=== PATIENT | male | born 1935 | race Caucasian/White ===

== ENCOUNTER 2017-09-27 01:48 | Inpatient (IN) | payer MEDICARE, OTHER, MEDICAID ==
[2017-09-27] MEDS ORDERED: Sodium Chloride 0.9% 10 ML Syringe FLUSH PRN (02:04)
[2017-09-27] MEDS ORDERED: Sodium Chloride 0.9% 1,000 ML IV ONE ×2 (02:13→04:06)
[2017-09-27 03:10] LABS: CHLORIDE,CL 106 mmol/L (98-107); SODIUM,NA 140 mmol/L (136-145)
[2017-09-27] MEDS ORDERED: cefTRIAXone 1 GM Vial IVPUSH ONE (03:46)
--- NOTE | 2017-09-27 04:53 | EDM.PDOC ---
ED HPI GENERAL MEDICAL PROBLEM - General Chief Complaint: General Stated Complaint: decreased LOC Time Seen by Provider: 09/27/17 02:00 Source of Information: Reports: Patient History Limitations: Reports: Physical Impairment, Respiratory Distress - History of Present Illness INITIAL COMMENTS - FREE TEXT/NARRATIVE: Pt. admitted from [facility] with fever, confusion, hematuria, weakness, and vomiting. Pt. has been sick for the past day, has not been in the clinic. His primary care is Dr. Galdamez. He currently is not experiencing and shortness of breath and denies any pain. Location: Reports: Generalized Associated Symptoms: Reports: Confusion, Fever/Chills, Nausea/Vomiting - Related Data Allergies Allergy/AdvReac Type Severity Reaction Status Date / Time metformin Allergy Cannot Verified 09/27/17 02:02 Remember Home Meds: Home Meds Citalopram [Citalopram HBr] 20 mg PO DAILY 12/29/13 [History] Lovastatin 20 mg PO DAILY 12/29/13 [History] amLODIPine [Norvasc] 10 mg PO DAILY 12/29/13 [History] Aspirin [Halfprin] 81 mg PO DAILY 01/04/14 [History] Fluticasone/Salmeterol [Advair 250-50] 1 puff INH BID 01/04/14 [History] Acetaminophen 650 mg PO BID 05/06/14 [History] Lactobacillus Acidophilus [Probiotic] 1 each PO BID 05/06/14 [History] Pregabalin [Lyrica] 75 mg PO BID 05/06/14 [History] Polyethylene Glycol 3350 [Miralax] 17 gm PO DAILY 07/29/15 [History] Fish Oil/[place]-3 Fatty Acids [Fish Oil 1,000 MG] 1 gram PO DAILY 08/01/15 [ History] Ferrous Sulfate 325 mg PO BIDMEALS #60 tablet 08/02/15 [Rx] Allopurinol [Zyloprim] 200 mg PO DAILY 02/17/17 [History] Alpha Lipoic Acid 300 mg PO TID 02/17/17 [History] Finasteride 5 mg PO DAILY 02/17/17 [History] Insulin Aspart [NovoLOG] See Protocol SUBCUT BID 02/17/17 [History] Multivitamin [Multi-Vitamin Daily] 1 each PO DAILY 02/17/17 [History] Ranitidine HCl 150 mg PO DAILY 02/17/17 [History] Tamsulosin [Flomax] 0.4 mg PO DAILY 02/17/17 [History] Tresiba Flextouch Pen 200u/Ml 70 units SUBCUT DAILY 02/17/17 [History] levETIRAcetam [Keppra] 750 mg PO BID 02/17/17 [History] Docusate Sodium [Colace] 100 mg PO DAILY 09/27/17 [History] Levothyroxine Sodium [Unithroid] 100 mcg PO DAILY 09/27/17 [History] Lisinopril 2.5 mg PO DAILY 09/27/17 [History] Loratadine 10 mg PO DAILY 09/27/17 [History] Magnesium Chloride [Mag-64] 128 mg PO BID 09/27/17 [History] Psyllium Husk (With Sugar) [Metamucil Powder] 1 tsp PO DAILY 09/27/17 [History] SitaGLIPtin [Januvia] 50 mg PO DAILY 09/27/17 [History] Past Medical History HEENT History: Reports: Cataract Cardiovascular History: Reports: High Cholesterol, Hypertension, SOB on Exertion , Other (See Below) Other Cardiovascular History: AAA without rupture Respiratory History: Reports: COPD, Sleep Apnea Other Respiratory History: Chronic home O2 at 2L Gastrointestinal History: Reports: Chronic Constipation, GERD Other Gastrointestinal History: DIVERTICULITIS Genitourinary History: Reports: BPH, Renal Disease Other Genitourinary History: diverticulitis Musculoskeletal History: Reports: Gout, Neck Pain, Chronic, Osteoarthritis Neurological History: Reports: Seizure, Other (See Below) Other Neuro History: dementia, mild cognitive impairment Psychiatric History: Reports: Depression Endocrine/Metabolic History: Reports: Diabetes, Type II, Hypothyroidism Hematologic History: Reports: Anemia Immunologic History: Reports: Immunosuppression Oncologic (Cancer) History: Reports: Colon, Prostate Dermatologic History: Reports: Eczema Other Dermatologic History: DERMITITIS - Past Surgical History HEENT Surgical History: Reports: Cataract Surgery Social & Family History - Family History Family Medical History: Unobtainable - Tobacco Use Smoking Status *Q: Unknown Ever Smoked Years of Tobacco use: 42 Packs/Tins Daily: 1 Used Tobacco, but Quit: Yes Month Tobacco Last Used: unknown Second Hand Smoke Exposure: No - Caffeine Use Caffeine Use: Reports: Coffee - Alcohol Use Days Per Week of Alcohol Use: 0 - Recreational Drug Use Recreational Drug Use: No ED ROS GENERAL - Review of Systems Review Of Systems: Unable To Obtain ED EXAM, GENERAL - Physical Exam Exam: See Below Exam Limited By: Altered Mental Status General Appearance: Lethargic Eye Exam: Bilateral Eye: Normal Fundi, Normal Inspection Ears: Normal External Exam, Normal Canal, Hearing Grossly Normal, Normal TMs Nose: Normal Inspection, Normal Mucosa, No Blood Throat/Mouth: Normal Inspection, Normal Lips, Normal Teeth, Normal Gums, Normal Oropharynx, Normal Voice, No Airway Compromise Head: Atraumatic, Normocephalic Neck: Normal Inspection, Supple, Non-Tender, Full Range of Motion Respiratory/Chest: Crackles (bases) Cardiovascular: Normal Peripheral Pulses, Regular Rate, Rhythm, No Edema, No Gallop, No JVD, No Murmur, No Rub Peripheral Pulses: 3+: Radial (L), Radial (R) GI/Abdominal: Normal Bowel Sounds, Soft, Non-Tender, No Organomegaly, No Distention Back Exam: Normal Inspection, Full Range of Motion, NT Extremities: Normal Inspection, Normal Range of Motion, Non-Tender, Normal Capillary Refill, No Pedal Edema Neurological: Alert, Oriented, CN II-XII Intact, Normal Cognition, Normal Gait, Normal Reflexes, No Motor/Sensory Deficits Psychiatric: Normal Affect, Normal Mood Skin Exam: Warm, Dry, Intact, Normal Color, No Rash Course - Vital Signs Last Recorded V/S: Last Vital Signs Temp 38.4 C H 09/27/17 01:50 Pulse 76 09/27/17 01:50 Resp 20 09/27/17 01:50 BP 94/40 L 09/27/17 04:04 Pulse Ox 91 L 09/27/17 04:04 - Orders/Labs/Meds Orders: Active Orders 24 hr Category Date Time Status Patient Status [ADT] Routine ADT 09/27/17 03:43 Active Oxygen Therapy [RC] PRN Care 09/27/17 02:02 Active Chest 1V Frontal [CR] Stat Exams 09/27/17 02:03 Taken CULTURE BLOOD [BC] Stat Lab 09/27/17 02:29 Received CULTURE BLOOD [BC] Stat Lab 09/27/17 02:44 Received Sodium Chloride 0.9% [Saline Flush] Med 09/27/17 02:04 Active 10 ml FLUSH ASDIRECTED PRN Blood Culture x2 Reflex Set [OM.PC] Stat Oth 09/27/17 02:04 Ordered Peripheral IV Insertion Adult [OM.PC] Routine Oth 09/27/17 02:04 Ordered Medication Orders Ceftriaxone Sodium (Rocephin) 1 gm IVPUSH DAILY DAVID Sodium Chloride (Normal Saline) 1,000 mls @ 250 mls/hr IV .BOLUS ONE Stop: 09/27/17 08:05 Sodium Chloride (Saline Flush) 10 ml FLUSH ASDIRECTED PRN PRN Reason: Keep Vein Open Labs: Laboratory Tests 09/27/17 09/27/17 09/27/17 Range/Units 02:15 02:29 02:29 WBC 19.3 H (4.0-10.0) x10^3/uL RBC 3.83 L (4.5-6.0) x10^6/uL Hgb 11.3 L (14.0-18.0) g/dL Hct 34.9 L (40.0-52.0) % MCV 91.1 (78.0-93.0) fL MCH 29.5 (26.0-32.0) pg MCHC 32.4 (32.0-36.0) g/dL RDW Coeff of Ayaz 14.9 (10.0-15.0) % Plt Count 148 (130-400) x10^3/uL Add Manual Diff Yes Neutrophils % (Manual) 86 H (50-80) % Band Neutrophils % 7 H (0-6) % Lymphocytes % (Manual) 3 L (25-50) % Monocytes % (Manual) 4 (2-11) % Toxic Granulation 1+ slight H Platelet Estimate Adequate Anisocytosis 1+ slight H Ovalocytes Rare PT 11.1 (9.8-11.8) SEC INR 1.0 L (2.0-3.5) Sodium (136-145) mmol/L Potassium (3.5-5.1) mmol/L Chloride (98-107) mmol/L Carbon Dioxide (21-32) mmol/L BUN (7-18) mg/dL Creatinine (0.70-1.30) mg/dL Est Cr Clr Drug Dosing Estimated GFR (MDRD) Glucose (74-106) mg/dL Lactic Acid (0.4-2.0) mmol/L Calcium (8.5-10.1) mg/dL Corrected Calcium (8.5-10.1) mg/dL Total Bilirubin (0.2-1.0) mg/dL AST (15-37) U/L ALT (16-63) U/L Alkaline Phosphatase (46-116) U/L C-Reactive Protein (<=0.9) mg/dL Total Protein (6.4-8.2) g/dL Albumin (3.4-5.0) g/dL Globulin Albumin/Globulin Ratio Urine Color Kenna H (YELLOW) Urine Appearance Turbid H (CLEAR) Urine pH 9.0 H (5.0-8.0) Ur Specific [place] 1.015 Urine Protein >=300 H (NEGATIVE) mg/dL Urine Glucose (UA) Negative (NEGATIVE) mg/dL Urine Ketones Negative (NEGATIVE) mg/dL Urine Occult Blood Large H (NEGATIVE) Urine Nitrite Positive H (NEGATIVE) Urine Bilirubin Negative (NEGATIVE) Urine Urobilinogen 0.2 (0.2) EU/dL Ur Leukocyte Esterase Moderate H (NEGATIVE) Urine RBC 0-5 (NOT SEEN) /HPF Urine WBC 40-50 H (NOT SEEN) /HPF Ur Squamous Epith Cells Not seen (NEGATIVE) /HPF Triple Phos Crystals Moderate H (NEGATIVE) /HPF Urine Bacteria Many H (NEGATIVE) /HPF Urine Mucus Not seen (NEGATIVE) /LPF 09/27/17 09/27/17 Range/Units 02:29 02:29 WBC (4.0-10.0) x10^3/uL RBC (4.5-6.0) x10^6/uL Hgb (14.0-18.0) g/dL Hct (40.0-52.0) % MCV (78.0-93.0) fL MCH (26.0-32.0) pg MCHC (32.0-36.0) g/dL RDW Coeff of Ayaz (10.0-15.0) % Plt Count (130-400) x10^3/uL Add Manual Diff Neutrophils % (Manual) (50-80) % Band Neutrophils % (0-6) % Lymphocytes % (Manual) (25-50) % Monocytes % (Manual) (2-11) % Toxic Granulation Platelet Estimate Anisocytosis Ovalocytes PT (9.8-11.8) SEC INR (2.0-3.5) Sodium 140 (136-145) mmol/L Potassium 6.3 H* (3.5-5.1) mmol/L Chloride 106 (98-107) mmol/L Carbon Dioxide 22 (21-32) mmol/L BUN 46 H (7-18) mg/dL Creatinine 2.8 H (0.70-1.30) mg/dL Est Cr Clr Drug Dosing TNP Estimated GFR (MDRD) 22 Glucose 110 H (74-106) mg/dL Lactic Acid 1.2 (0.4-2.0) mmol/L Calcium 9.1 (8.5-10.1) mg/dL Corrected Calcium 9.90 (8.5-10.1) mg/dL Total Bilirubin 0.5 (0.2-1.0) mg/dL AST 25 (15-37) U/L ALT 29 (16-63) U/L Alkaline Phosphatase 74 (46-116) U/L C-Reactive Protein 17.5 H (<=0.9) mg/dL Total Protein 7.2 (6.4-8.2) g/dL Albumin 3.0 L (3.4-5.0) g/dL Globulin 4.2 Albumin/Globulin Ratio 0.71 Urine Color (YELLOW) Urine Appearance (CLEAR) Urine pH (5.0-8.0) Ur Specific [place] Urine Protein (NEGATIVE) mg/dL Urine Glucose (UA) (NEGATIVE) mg/dL Urine Ketones (NEGATIVE) mg/dL Urine Occult Blood (NEGATIVE) Urine Nitrite (NEGATIVE) Urine Bilirubin (NEGATIVE) Urine Urobilinogen (0.2) EU/dL Ur Leukocyte Esterase (NEGATIVE) Urine RBC (NOT SEEN) /HPF Urine WBC (NOT SEEN) /HPF Ur Squamous Epith Cells (NEGATIVE) /HPF Triple Phos Crystals (NEGATIVE) /HPF Urine Bacteria (NEGATIVE) /HPF Urine Mucus (NEGATIVE) /LPF Meds: Medications Generic Name Dose Route Start Last Admin Trade Name Freq PRN Reason Stop Dose Admin Ceftriaxone Sodium 1 gm 09/28/17 04:00 Rocephin IVPUSH DAILY DAVID Sodium Chloride 1,000 mls @ 250 mls/hr 09/27/17 04:06 Normal Saline IV 09/27/17 08:05 .BOLUS ONE Sodium Chloride 10 ml 09/27/17 02:04 Saline Flush FLUSH ASDIRECTED PRN Keep Vein Open Discontinued Medications Generic Name Dose Route Start Last Admin Trade Name Freq PRN Reason Stop Dose Admin Ceftriaxone Sodium 1 gm 09/27/17 03:46 09/27/17 04:11 Rocephin IVPUSH 09/27/17 03:47 1 gm ONETIME ONE Administration Sodium Chloride 1,000 mls @ 1,000 mls/hr 09/27/17 02:13 09/27/17 03:00 Normal Saline IV 09/27/17 03:12 1,000 mls/hr .BOLUS ONE Administration Departure - Departure Time of Disposition: 04:20 Disposition: Admitted As Inpatient 68 Clinical Impression: Sepsis, UTI, Urinary tract infectious disease CKD (chronic kidney disease) Qualifiers: Chronic kidney disease stage: unspecified stage Qualified Code(s): N18.9 - Chronic kidney disease, unspecified - Discharge Information - My Orders Last 24 Hours: My Active Orders 09/27/17 02:02 Oxygen Therapy [RC] PRN 09/27/17 02:03 Chest 1V Frontal [CR] Stat 09/27/17 02:04 Sodium Chloride 0.9% [Saline Flush] 10 ml FLUSH ASDIRECTED PRN Blood Culture x2 Reflex Set [OM.PC] Stat Peripheral IV Insertion Adult [OM.PC] Routine 09/27/17 02:29 CULTURE BLOOD [BC] Stat 09/27/17 02:44 CULTURE BLOOD [BC] Stat 09/27/17 03:43 Patient Status [ADT] Routine - Assessment/Plan Last 24 Hours: My Active Orders 09/27/17 02:02 Oxygen Therapy [RC] PRN 09/27/17 02:03 Chest 1V Frontal [CR] Stat 09/27/17 02:04 Sodium Chloride 0.9% [Saline Flush] 10 ml FLUSH ASDIRECTED PRN Blood Culture x2 Reflex Set [OM.PC] Stat Peripheral IV Insertion Adult [OM.PC] Routine 09/27/17 02:29 CULTURE BLOOD [BC] Stat 09/27/17 02:44 CULTURE BLOOD [BC] Stat 09/27/17 03:43 Patient Status [ADT] Routine
[2017-09-27] MEDS ORDERED: TRESIBA SUBCUT SCH (08:00)
[2017-09-27] MEDS ORDERED: [UNRECOGNIZED DRUG - OTHER] SUBCUT SCH (08:00)
[2017-09-27] MEDS ORDERED: Insulin Aspart 100 Units/ML 3 ML Pen SUBCUT SCH (08:00)
[2017-09-27] MEDS ORDERED: Levothyroxine 100 MCG Tab PO SCH (08:00)
[2017-09-27] MEDS ORDERED: Pregabalin 75 MG Cap PO SCH (08:00)
[2017-09-27] MEDS: Formoterol/Mometasone 200-5 MCG 8.8 GM Inhaler IH SCH ×2 (08:10→20:24)
[2017-09-27] MEDS: Tamsulosin 0.4 MG Cap.ER PO SCH (08:13)
[2017-09-27] MEDS: Acetaminophen 325 MG Tab PO SCH ×2 (08:13→20:18)
[2017-09-27] MEDS: Docusate Sodium 100 MG Cap PO SCH (08:13)
[2017-09-27] MEDS: Loratadine 10 MG Tab PO SCH (08:13)
[2017-09-27] MEDS: SitaGLIPtin 25 MG Tab PO SCH (08:14)
[2017-09-27] MEDS: Fish Oil/Omega-3 Fatty Acids 1 Gm Cap PO SCH (08:14)
[2017-09-27] MEDS: Famotidine 20 MG Tab PO SCH (08:14)
[2017-09-27] MEDS: Citalopram 20 MG Tab PO SCH (08:14)
[2017-09-27] MEDS: Ferrous Sulfate 325 MG Tab PO SCH ×2 (08:15→20:13)
[2017-09-27] MEDS: Multivitamin, Stress Formula with Zinc Tab PO SCH (08:15)
[2017-09-27] MEDS: levETIRAcetam 500 MG Tab PO SCH ×2 (08:15→20:17)
[2017-09-27] MEDS: Finasteride 5 MG Tab PO SCH (08:15)
[2017-09-27] MEDS: amLODIPine 10 MG Tab PO SCH (08:15)
[2017-09-27] MEDS: Magnesium Chloride 64 MG Tab.ER PO SCH ×2 (08:15→20:17)
[2017-09-27] MEDS: Aspirin 81 MG Tab.EC PO SCH (08:15)
[2017-09-27] MEDS: Pregabalin 25 MG Cap PO SCH ×2 (11:37→20:17)
[2017-09-27] MEDS: Insulin Aspart 100 Units/ML 3 ML Pen SUBCUT SCH ×3 (11:37→20:19)
[2017-09-27] MEDS: Sodium Chloride 0.9% 1,000 ML IV SCH ×2 (11:38→20:20)
--- NOTE | 2017-09-27 15:25 | HP ---
REASON FOR ADMISSION: Fever and decreased level of consciousness. HISTORY OF PRESENT ILLNESS: An 82-year-old white male resident of the [facility] was transported to the [facility] Emergency room this morning, middle of the night with reports of fever up to 103 degrees, confusion, decreased level of consciousness, blood in the urine, weakness, and vomiting. Because of patient's condition and lethargy, he is unreliable historian at this time. Apparently, he had been sick for about a day. He was not experiencing any shortness of breath and currently he is denying any discomfort, although he is very drowsy when talking to him. Most information was taken from the old records. PAST MEDICAL HISTORY: Significant for 1. 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 He was seen by his urologist on 09/17/2017. Options were discussed. He was not felt to be a candidate for radical surgery or chemotherapy. He was recommended for palliative radiation therapy. 2. Hypertension. 3. COPD. 4. Sleep apnea. He is on home O2. 5. Chronic constipation. 6. GERD. 7. Diverticulitis. 8. BPH. 9. Chronic kidney disease, type unspecified. 10.Chronic arthritis. 11.History of seizures. 12.Dementia and mild cognitive impairment. 13.Major depression. 14.Diabetes mellitus type 2. 15.Hypothyroidism. 16.Anemia and immunosuppression. 17.History of cataract surgery. HOME MEDICATIONS: As listed from the [facility] record are: 1. Citalopram 20 mg daily. 2. Lovastatin 20 mg daily. 3. Amlodipine 10 mg daily. 4. Aspirin 81 mg daily. 5. Advair 250/50 one puff b.i.d. 6. Tylenol b.i.d. 7. Probiotic b.i.d. 8. Lyrica 75 mg b.i.d. 9. MiraLAX 17 g daily. 10.Fish oil daily. 11.Iron 325 mg b.i.d. 12.Allopurinol 200 mg daily. 13.Alpha lipoic acid t.i.d. 14.Finasteride 5 mg daily. 15.Insulin NovoLog b.i.d. per protocol. 16.Multivitamin daily. 17.Ranitidine 150 mg daily. 18.Flomax 0.4 mg daily. 19.Tresiba injection 70 units daily. 20.Keppra 750 mg b.i.d. 21.Colace daily. 22.Levothyroxine 100 mcg daily. 23.Lisinopril 2.5 mg daily. 24.Loratadine 10 mg daily. 25.Magnesium 120 mg b.i.d. 26.Metamucil daily. 27.Januvia 50 mg daily. FAMILY HISTORY: Not obtainable. SOCIAL HISTORY: Not obtainable. REVIEW OF SYSTEMS: Difficult to obtain due to his current condition. He would arouse when talked to, but difficult to get him to answer the questions. He is not in any acute distress at this time. He denies any pain. PHYSICAL EXAMINATION: General: He is drowsy, lethargic, but arousable to verbal command. Vital Signs: Temperature is 99, pulse is 61, blood pressure is 102/43, respirations are 18, O2 saturations are 95% on 2 L. HEENT: Pupils unremarkable. TMs negative. Throat is clear. Mucosa is dry. Neck: No adenopathy. Heart: Regular rate and rhythm. Lungs: Clear to auscultation. Abdomen: Soft, obese, and nontender. No masses palpable. No hepatosplenomegaly noted. : not done. Rectal: Not done. Extremities: He moves all 4 extremities. There is no significant edema noted. LABORATORY DATA: White count on admission was 19.3, hemoglobin 11.3, 86% neutrophils. INR of 1. Potassium on admission was 6.3, creatinine of 2.8, GFR of 22, glucose of 110, lactic acid 1.2, C-reactive protein 17.5. LFTs are normal. Urinalysis showed positive protein, positive nitrates, 0-5 rbc's, 40-50 wbc's, and many bacteria. Chest x-ray is unremarkable. EKG showed a sinus rhythm with first-degree AV block and some anterolateral T- wave inversions. TREATMENT IN EMERGENCY ROOM: The patient was given 2 L of IV fluids and 1 g IV Rocephin. He was then admitted to the hospital on acute care status. ASSESSMENT: 1. Sepsis from a urinary tract source. 2. Urinary tract infection. 3. Acute kidney injury, probably on top of chronic kidney disease. 4. History of transitional cell carcinoma of the bladder on palliative treatment. 5. Hypertension. 6. Chronic obstructive pulmonary disease. 7. Diabetes mellitus type 2. PLAN: The patient is admitted to acute care status. He will be given IV fluids and IV Rocephin for his urosepsis. Blood cultures and urine cultures have been obtained. We will repeat his potassium this afternoon and the lab work tomorrow morning. The patient is DNR, DNI, comfort measures per [facility] records. Continue most of his [facility] medications except hold his lisinopril and his Tresiba. Continue to monitor his condition. FM: 09/27/2017 10:56:00 MODL: 09/27/2017 14:32:04 /[id number]
[2017-09-27] MEDS: Simvastatin 10 MG Tab PO SCH (20:18)
[2017-09-28] MEDS: Sodium Chloride 0.9% 1,000 ML IV SCH ×3 (02:12→23:21)
[2017-09-28] MEDS ORDERED: cefTRIAXone 1 GM Vial IVPUSH SCH (04:00)
[2017-09-28] MEDS: Levothyroxine 100 MCG Tab PO SCH ×2 (05:48→06:07)
[2017-09-28] MEDS: Insulin Aspart 100 Units/ML 3 ML Pen SUBCUT SCH ×4 (06:35→19:52)
[2017-09-28] MEDS: Fish Oil/Omega-3 Fatty Acids 1 Gm Cap PO SCH ×2 (08:23→11:31)
[2017-09-28] MEDS: Multivitamin, Stress Formula with Zinc Tab PO SCH (08:23)
[2017-09-28] MEDS: cefTRIAXone 1 GM Vial IVPUSH SCH (08:38)
[2017-09-28] MEDS: Formoterol/Mometasone 200-5 MCG 8.8 GM Inhaler IH SCH ×3 (08:40→19:47)
[2017-09-28] MEDS: Pregabalin 25 MG Cap PO SCH ×3 (08:40→19:51)
[2017-09-28] MEDS: Tamsulosin 0.4 MG Cap.ER PO SCH ×2 (08:41→11:31)
[2017-09-28] MEDS: Magnesium Chloride 64 MG Tab.ER PO SCH ×3 (08:41→19:51)
[2017-09-28] MEDS: Aspirin 81 MG Tab.EC PO SCH ×2 (08:41→11:31)
[2017-09-28] MEDS: Citalopram 20 MG Tab PO SCH ×2 (08:41→11:31)
[2017-09-28] MEDS: Loratadine 10 MG Tab PO SCH ×2 (08:41→11:31)
[2017-09-28] MEDS: levETIRAcetam 500 MG Tab PO SCH ×4 (08:41→19:47)
[2017-09-28] MEDS: Famotidine 20 MG Tab PO SCH ×2 (08:41→11:32)
[2017-09-28] MEDS: Finasteride 5 MG Tab PO SCH ×2 (08:41→11:32)
[2017-09-28] MEDS: amLODIPine 10 MG Tab PO SCH ×2 (08:41→11:32)
[2017-09-28] MEDS: Docusate Sodium 100 MG Cap PO SCH ×2 (08:41→11:31)
[2017-09-28] MEDS: SitaGLIPtin 25 MG Tab PO SCH ×2 (08:41→11:32)
[2017-09-28] MEDS: Acetaminophen 325 MG Tab PO SCH ×3 (08:42→19:52)
[2017-09-28] MEDS: Ferrous Sulfate 325 MG Tab PO SCH ×3 (08:42→17:58)
[2017-09-28] MEDS: Ondansetron 4 MG/2 ML SDV IVPUSH PRN (13:22)
--- NOTE | 2017-09-28 13:47 | PN ---
Progress Note for HALLIE JOSHI Date: 09/28/2017 Room #: VM.221 SUBJECTIVE: An 82-year-old white male admitted yesterday with sepsis due to urinary tract source. He was given IV fluids and IV Rocephin. This morning, he is complaining of nausea, some mid abdominal pain, also some chest discomfort and some diarrhea. He has had a poor appetite due to these symptoms and not eating well. OBJECTIVE: General: He is awake, lying in bed, answering questions. He is afebrile. Vital Signs: Pulse is 70, blood pressure is 139/49, respirations are 20, O2 sats 94% on 2 L. Heart: Regular rate and rhythm. Lungs: Clear. Abdomen: Obese, soft. No significant tenderness. No masses palpable. LABORATORY DATA: His white count is down to 8.7, hemoglobin is 10.6. Potassium is 5.2, stable. BUN is 39, improved. Creatinine is down to 1.8, improved. His GFR is now over 30. Glucose this morning was 118. His point clear glucose did have a low of 75 today. C-reactive protein remains elevated at 22.2. MRSA screen was negative. Blood cultures have been negative. EKG done this morning showed no acute changes. His marked T-wave changes from admission have improved. ASSESSMENT: 1. Sepsis secondary to urinary tract source. 2. Urinary tract infection. 3. Acute kidney injury - improved. 4. Hypertension. 5. Chronic obstructive pulmonary disease. 6. Diabetes mellitus type 2. 7. Nausea and abdominal pain. PLAN: 1. Add Zofran 4 mg q.8 hours p.r.n. for nausea. 2. Obtain troponin level. 3. Repeat lab tomorrow with CBC and BMP. 4. Continue his fluids and IV Rocephin. 5. Continue to monitor his condition. 6. Dr. Ivetet Galdamez will assume care in the morning. FM: 09/28/2017 13:25:21 MODL: 09/28/2017 13:40:48 /[id number]
[2017-09-28] MEDS ORDERED: HYDROmorphone 1 MG/ML Syringe IVPUSH PRN (14:48)
[2017-09-28] MEDS: Simvastatin 10 MG Tab PO SCH (19:52)
[2017-09-29] MEDS: Levothyroxine 100 MCG Tab PO SCH ×2 (05:46→06:10)
[2017-09-29] MEDS: Insulin Aspart 100 Units/ML 3 ML Pen SUBCUT SCH ×2 (06:32→11:48)
[2017-09-29] MEDS: Ondansetron 4 MG/2 ML SDV IVPUSH PRN (07:50)
[2017-09-29] MEDS: cefTRIAXone 1 GM Vial IVPUSH SCH (07:50)
[2017-09-29] MEDS: Aspirin 81 MG Tab.EC PO SCH (07:51)
[2017-09-29] MEDS: Ferrous Sulfate 325 MG Tab PO SCH ×2 (07:51→18:25)
[2017-09-29] MEDS: Multivitamin, Stress Formula with Zinc Tab PO SCH (07:51)
[2017-09-29] MEDS: Magnesium Chloride 64 MG Tab.ER PO SCH ×2 (07:53→19:05)
[2017-09-29] MEDS: Fish Oil/Omega-3 Fatty Acids 1 Gm Cap PO SCH (07:54)
[2017-09-29] MEDS: Docusate Sodium 100 MG Cap PO SCH (07:54)
[2017-09-29] MEDS: Finasteride 5 MG Tab PO SCH (07:55)
[2017-09-29] MEDS: SitaGLIPtin 25 MG Tab PO SCH (07:55)
[2017-09-29] MEDS: levETIRAcetam 500 MG Tab PO SCH ×2 (07:55→19:06)
[2017-09-29] MEDS: Tamsulosin 0.4 MG Cap.ER PO SCH (07:55)
[2017-09-29] MEDS: Citalopram 20 MG Tab PO SCH (07:55)
[2017-09-29] MEDS: Acetaminophen 325 MG Tab PO SCH ×2 (07:56→19:06)
[2017-09-29] MEDS: Famotidine 20 MG Tab PO SCH (07:56)
[2017-09-29] MEDS: Loratadine 10 MG Tab PO SCH (07:56)
[2017-09-29] MEDS: amLODIPine 10 MG Tab PO SCH (07:56)
[2017-09-29] MEDS: Formoterol/Mometasone 200-5 MCG 8.8 GM Inhaler IH SCH ×2 (08:03→19:07)
[2017-09-29] MEDS: Pregabalin 25 MG Cap PO SCH ×2 (08:06→19:04)
--- NOTE | 2017-09-29 08:49 | PCM.PN ---
- General Info Date of Service: 09/29/17 Subjective Update: 82 yo male hospital day #3 after admission for sepsis secondary to UTI. Had complained of some chest pain and nausea yesterday that had been worked up. He reports he is feeling well this morning. He denies any chest or abdominal pain today. He has not had any nausea. He denies any fever or chills. He has a catheter in place. He is hoping the catheter can stay in as he notes difficulty voiding recently. However, I did speak with nursing staff at the care center who have not noted any issues with voiding; they do note that he is not always amenable to help with this. - Review of Systems General: Reports: No Symptoms HEENT: Reports: No Symptoms Pulmonary: Reports: No Symptoms Cardiovascular: Reports: No Symptoms Gastrointestinal: Reports: No Symptoms Genitourinary: Reports: No Symptoms Musculoskeletal: Reports: No Symptoms Skin: Reports: No Symptoms - Patient Data Vitals - Most Recent: Last Vital Signs Temp 36.6 C 09/29/17 06:00 Pulse 68 09/29/17 06:00 Resp 20 09/29/17 06:00 BP 138/71 09/29/17 06:00 Pulse Ox 97 09/29/17 07:33 Weight - Most Recent: 97.522 kg I&O - Last 24 Hours: Intake & Output 09/28/17 09/29/17 09/29/17 22:59 06:59 14:59 Intake Total 1188 1758 Output Total 800 1250 Balance 388 508 Lab Results Last 24 Hours: Laboratory Results - last 24 hr 09/28/17 09/28/17 09/28/17 Range/Units 08:20 08:20 08:20 WBC 8.7 (4.0-10.0) x10^3/uL RBC 3.60 L (4.5-6.0) x10^6/uL Hgb 10.6 L (14.0-18.0) g/dL Hct 33.6 L (40.0-52.0) % MCV 93.3 H (78.0-93.0) fL MCH 29.4 (26.0-32.0) pg MCHC 31.5 L (32.0-36.0) g/dL RDW Coeff of Ayaz 15.1 H (10.0-15.0) % Plt Count 108 L (130-400) x10^3/uL Neut % (Auto) 85.4 H (50.0-80.0) % Lymph % (Auto) 3.6 L (25.0-50.0) % Refugio % (Auto) 9.6 (2.0-11.0) % Eos % (Auto) 1.3 (0.0-4.0) % Baso % (Auto) 0.1 L (0.2-1.2) % Sodium 141 (136-145) mmol/L Potassium 5.2 H (3.5-5.1) mmol/L Chloride 113 H (98-107) mmol/L Carbon Dioxide 17 L (21-32) mmol/L BUN 39 H (7-18) mg/dL Creatinine 1.8 H (0.70-1.30) mg/dL Est Cr Clr Drug Dosing 30.60 mL/min Estimated GFR (MDRD) 36 Glucose 118 H (74-106) mg/dL POC Glucose (74-106) mg/dL Lactic Acid 0.9 (0.4-2.0) mmol/L Calcium 8.1 L (8.5-10.1) mg/dL Troponin I (<=0.056) ng/mL C-Reactive Protein 22.2 H (<=0.9) mg/dL 09/28/17 09/28/17 09/28/17 Range/Units 11:26 14:15 17:16 WBC (4.0-10.0) x10^3/uL RBC (4.5-6.0) x10^6/uL Hgb (14.0-18.0) g/dL Hct (40.0-52.0) % MCV (78.0-93.0) fL MCH (26.0-32.0) pg MCHC (32.0-36.0) g/dL RDW Coeff of Ayaz (10.0-15.0) % Plt Count (130-400) x10^3/uL Neut % (Auto) (50.0-80.0) % Lymph % (Auto) (25.0-50.0) % [place]ug[place] % (Auto) (2.0-11.0) % Eos % (Auto) (0.0-4.0) % Baso % (Auto) (0.2-1.2) % Sodium (136-145) mmol/L Potassium (3.5-5.1) mmol/L Chloride (98-107) mmol/L Carbon Dioxide (21-32) mmol/L BUN (7-18) mg/dL Creatinine (0.70-1.30) mg/dL Est Cr Clr Drug Dosing mL/min Estimated GFR (MDRD) Glucose (74-106) mg/dL POC Glucose 89 100 (74-106) mg/dL Lactic Acid (0.4-2.0) mmol/L Calcium (8.5-10.1) mg/dL Troponin I 0.102 H* (<=0.056) ng/mL C-Reactive Protein (<=0.9) mg/dL 09/28/17 09/28/17 09/29/17 Range/Units 19:46 20:05 05:48 WBC (4.0-10.0) x10^3/uL RBC (4.5-6.0) x10^6/uL Hgb (14.0-18.0) g/dL Hct (40.0-52.0) % MCV (78.0-93.0) fL MCH (26.0-32.0) pg MCHC (32.0-36.0) g/dL RDW Coeff of Ayaz (10.0-15.0) % Plt Count (130-400) x10^3/uL Neut % (Auto) (50.0-80.0) % Lymph % (Auto) (25.0-50.0) % [place]ug[place] % (Auto) (2.0-11.0) % Eos % (Auto) (0.0-4.0) % Baso % (Auto) (0.2-1.2) % Sodium (136-145) mmol/L Potassium (3.5-5.1) mmol/L Chloride (98-107) mmol/L Carbon Dioxide (21-32) mmol/L BUN (7-18) mg/dL Creatinine (0.70-1.30) mg/dL Est Cr Clr Drug Dosing mL/min Estimated GFR (MDRD) Glucose (74-106) mg/dL POC Glucose 129 H 81 (74-106) mg/dL Lactic Acid (0.4-2.0) mmol/L Calcium (8.5-10.1) mg/dL Troponin I 0.160 H* (<=0.056) ng/mL C-Reactive Protein (<=0.9) mg/dL 09/29/17 09/29/17 Range/Units 06:42 06:42 WBC 8.6 (4.0-10.0) x10^3/uL RBC 3.37 L (4.5-6.0) x10^6/uL Hgb 10.0 L (14.0-18.0) g/dL Hct 31.2 L (40.0-52.0) % MCV 92.6 (78.0-93.0) fL MCH 29.7 (26.0-32.0) pg MCHC 32.1 (32.0-36.0) g/dL RDW Coeff of Ayaz 14.9 (10.0-15.0) % Plt Count 118 L (130-400) x10^3/uL Neut % (Auto) 75.4 (50.0-80.0) % Lymph % (Auto) 8.3 L (25.0-50.0) % [place] % (Auto) 14.0 H (2.0-11.0) % Eos % (Auto) 2.1 (0.0-4.0) % Baso % (Auto) 0.2 (0.2-1.2) % Sodium 144 (136-145) mmol/L Potassium 4.6 (3.5-5.1) mmol/L Chloride 113 H (98-107) mmol/L Carbon Dioxide 22 (21-32) mmol/L BUN 35 H (7-18) mg/dL Creatinine 1.7 H (0.70-1.30) mg/dL Est Cr Clr Drug Dosing 32.40 mL/min Estimated GFR (MDRD) 39 Glucose 88 (74-106) mg/dL POC Glucose (74-106) mg/dL Lactic Acid (0.4-2.0) mmol/L Calcium 8.0 L (8.5-10.1) mg/dL Troponin I (<=0.056) ng/mL C-Reactive Protein (<=0.9) mg/dL Jero Results Last 24 Hours: Microbiology 09/27/17 08:14 MRSA Surveillance Culture - Final Nares, Unspecified NO MRSA ISOLATED Med Orders - Current: Current Medications Acetaminophen (Tylenol) 650 mg PO BID [facility] Last Admin: 09/29/17 07:56 Dose: 650 mg Amlodipine Besylate (Norvasc) 10 mg PO DAILY [facility] Last Admin: 09/29/17 07:56 Dose: 10 mg Aspirin (Halfprin) 81 mg PO DAILY [facility] Last Admin: 09/29/17 07:51 Dose: 81 mg Ceftriaxone Sodium (Rocephin) 1 gm IVPUSH DAILY [facility] Last Admin: 09/29/17 07:50 Dose: 1 gm Citalopram Hydrobromide (Celexa) 20 mg PO DAILY [facility] Last Admin: 09/29/17 07:55 Dose: 20 mg Docusate Sodium (Colace) 100 mg PO DAILY [facility] Last Admin: 09/29/17 07:54 Dose: 100 mg Famotidine (Pepcid) 20 mg PO DAILY [facility] Last Admin: 09/29/17 07:56 Dose: 20 mg Ferrous Sulfate (Ferrous Sulfate) 325 mg PO BIDMEALS [facility] Last Admin: 09/29/17 07:51 Dose: 325 mg Finasteride (Proscar) 5 mg PO DAILY [facility] Last Admin: 09/29/17 07:55 Dose: 5 mg Fish Oil (Fish Oil) 1 gm PO DAILY [facility] Last Admin: 09/29/17 07:54 Dose: 1 gm Hydromorphone HCl (Dilaudid) 1 mg IVPUSH Q3H PRN PRN Reason: Pain Sodium Chloride (Normal Saline) 1,000 mls @ 100 mls/hr IV ASDIRECTED [facility] Last Admin: 09/28/17 23:21 Dose: 100 mls/hr Insulin Aspart (Novolog) 0 unit SUBCUT QIDACANDBED [facility] Last Admin: 09/29/17 06:32 Dose: Not Given Levetiracetam (Keppra) 750 mg PO BID [facility] Last Admin: 09/29/17 07:55 Dose: 750 mg Levothyroxine Sodium (Synthroid) 100 mcg PO ACBREAKFAST [facility] Last Admin: 09/29/17 06:10 Dose: Not Given Loratadine (Claritin) 10 mg PO DAILY [facility] Last Admin: 09/29/17 07:56 Dose: 10 mg Magnesium Chloride (Mag-64) 128 mg PO BID [facility] Last Admin: 09/29/17 07:53 Dose: 128 mg Mometasone Furoate/Formoterol Fumar (Dulera 200-5 Mcg) 2 puff IH BID [facility] Last Admin: 09/29/17 08:03 Dose: 2 puff Non-Formulary Medication (Tresiba Flextouch Pen 200u/Ml) 70 units SUBCUT DAILY [facility] Last Admin: 09/27/17 08:55 Dose: Not Given Ondansetron HCl (Zofran) 4 mg IVPUSH Q8H PRN PRN Reason: Nausea Last Admin: 09/29/17 07:50 Dose: 4 mg Pregabalin (Lyrica) 75 mg PO BID [facility] Last Admin: 09/29/17 08:06 Dose: 75 mg Simvastatin (Zocor) 10 mg PO BEDTIME [facility] Last Admin: 09/28/17 19:52 Dose: Not Given Sitagliptin Phosphate (Januvia) 50 mg PO DAILY [facility] Last Admin: 09/29/17 07:55 Dose: 50 mg Sodium Chloride (Saline Flush) 10 ml FLUSH ASDIRECTED PRN PRN Reason: Keep Vein Open Tamsulosin HCl (Flomax) 0.4 mg PO DAILY [facility] Last Admin: 09/29/17 07:55 Dose: 0.4 mg Vitamin B Complex/Vit C/Vit E/Zinc (Stress Formula With Zinc) 1 tab PO DAILY [facility] Last Admin: 09/29/17 07:51 Dose: 1 tab Discontinued Medications Ceftriaxone Sodium (Rocephin) 1 gm IVPUSH ONETIME ONE Stop: 09/27/17 03:47 Last Admin: 09/27/17 04:11 Dose: 1 gm Ceftriaxone Sodium (Rocephin) 1 gm IVPUSH DAILY [facility] Sodium Chloride (Normal Saline) 1,000 mls @ 1,000 mls/hr IV .BOLUS ONE Stop: 09/27/17 03:12 Last Admin: 09/27/17 03:00 Dose: 1,000 mls/hr Sodium Chloride (Normal Saline) 1,000 mls @ 250 mls/hr IV .BOLUS ONE Stop: 09/27/17 08:05 Last Admin: 09/27/17 04:47 Dose: 250 mls/hr Insulin Aspart (Novolog) 0 unit SUBCUT TIDMEALS [facility] Last Admin: 09/27/17 08:17 Dose: Not Given Levothyroxine Sodium (Synthroid) 100 mcg PO DAILY [facility] Last Admin: 09/27/17 08:15 Dose: 100 mcg Pregabalin (Lyrica) 75 mg PO BID [facility] Last Admin: 09/27/17 08:55 Dose: Not Given - Exam General: Alert, Cooperative, No Acute Distress HEENT: Mucous Membr. Moist/Gem Neck: Supple, Trachea Midline, No Thyromegaly. No: Lymphadenopathy Lungs: Clear to Auscultation, Normal Respiratory Effort Cardiovascular: Regular Rate, Regular Rhythm, No Murmurs GI/Abdominal Exam: Normal Bowel Sounds, Soft, Non-Tender, No Organomegaly, No Distention, No Mass Extremities: Normal Inspection, Non-Tender, No Pedal Edema Peripheral Pulses: 2+: Radial (L), Radial (R), Posterior Tibial (L), Posterior Tibial (R) Skin: Warm, Dry, Intact - Problem List & Annotations (1) Sepsis SNOMED Code(s): 90117549 Code(s): A41.9 - SEPSIS, UNSPECIFIED ORGANISM Status: Acute Current Visit : Yes Qualifiers: Sepsis type: sepsis due to unspecified organism Qualified Code(s): A41.9 - Sepsis, unspecified organism Annotation/Comment:: - Initially met sepsis criteria with fever and leukocytosis. Now resolved. - Secondary to UTI. No evidence by history or exam for other cause. - Blood cultures negative thus far. - Urine culture pending. - Vitals stable. Will saline lock IV today. (2) UTI, Urinary tract infectious disease SNOMED Code(s): 07525370 Code(s): N39.0 - URINARY TRACT INFECTION, SITE NOT SPECIFIED Status: Acute Current Visit: Yes Annotation/Comment:: - Complicated UTI given male gender and known urologic cancers. - He has improved clinically on ceftriaxone. Will continue this until urine culture and susceptibilities are available. - Urine culture is pending. - Will remove urinary catheter today and do voiding trial. He does not have a reason to leave that in at this time unless he is able to void once it is removed. 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 - Has improved nicely with IV fluids and is down to baseline of 1.7-1.8 for the past 2 days. - Will saline lock IV and have him push PO fluids today. (4) CKD (chronic kidney disease) SNOMED Code(s): 740947323 Code(s): N18.9 - CHRONIC KIDNEY DISEASE, UNSPECIFIED Status: Chronic Current Visit: Yes Qualifiers: Chronic kidney disease stage: unspecified stage Qualified Code(s): N18.9 - Chronic kidney disease, unspecified Annotation/Comment:: - See above. 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 (5) Bladder cancer SNOMED Code(s): 135119429 Code(s): C67.9 - MALIGNANT NEOPLASM OF BLADDER, UNSPECIFIED Status: Chronic Current Visit: Yes Qualifiers: Bladder location: unspecified site Qualified Code(s): C67.9 - Malignant neoplasm of bladder, unspecified Annotation/Comment:: - Has consult with oncology tomorrow for this. - Tumor has been resected and should not cause any urinary retention issues. - As above, will remove catheter today and do voiding trial. (6) COPD (chronic obstructive pulmonary disease) SNOMED Code(s): 35428085 Code(s): J44.9 - CHRONIC OBSTRUCTIVE PULMONARY DISEASE, UNSPECIFIED Status : Chronic Current Visit: No Qualifiers: COPD type: unspecified COPD Qualified Code(s): J44.9 - Chronic obstructive pulmonary disease, unspecified Annotation/Comment:: - No acute symptoms. Lungs are clear. - Continue home medications and oxygen per usual schedule. (7) Diabetes mellitus SNOMED Code(s): 84663773 Code(s): E11.9 - TYPE 2 DIABETES MELLITUS WITHOUT COMPLICATIONS Status: Chronic Current Visit: No Annotation/Comment:: - Glucoses acceptable during this admission. - Continue tresiba. (8) Hypertension SNOMED Code(s): 68115626 Code(s): I10 - ESSENTIAL (PRIMARY) HYPERTENSION Status: Chronic Current Visit: No Qualifiers: Hypertension type: essential hypertension Qualified Code(s): I10 - Essential (primary) hypertension Annotation/Comment:: - BP also acceptable after fluid resuscitation. - Home medications continued. - Problem List Review Problem List Initiated/Reviewed/Updated: Yes - Assessment Assessment:: 82 yo male admitted with sepsis secondary to UTI. Doing much better today. No symptoms whatsoever this am. Chronic medical conditions are stable. - Plan Plan:: See details under problems above. Patient is much improved from admission. Will saline lock IV and push oral fluids today. Continue ceftriaxone until urine susceptibilities are available, which should hopefully be tomorrow. No changes today. He will remain on acute status overnight tonight as we await final urine results. Anticipate dismissal early tomorrow in order to get him to his oncology appointment in [place] tomorrow afternoon. He has not been on VTE prophylaxis - lovenox is not ideal given borderline renal function; heparin is not ideal in the setting of his platelets being low, which is not usual for him. At this point, will start SCD's and hold off on pharmacologic based on concerns above.
--- NOTE | 2017-09-29 11:04 | PCM.SN ---
- Free Text/Narrative Note: Susceptibilities are back. Will transition to cefdinir based on this. Still recommend keeping him overnight after this transition as well as the trial of voiding today. Patient's son update and in agreement with plan. Code status of DNR/DNI confirmed. All questions answered.
[2017-09-29] MEDS: Simvastatin 10 MG Tab PO SCH (19:05)
[2017-09-29] MEDS: Cefdinir 300 MG Cap PO SCH (19:06)
[2017-09-30 05:56] VITALS: BP 136/84
[2017-09-30] MEDS: Levothyroxine 100 MCG Tab PO SCH (06:16)
[2017-09-30] MEDS: Pregabalin 25 MG Cap PO SCH (07:32)
[2017-09-30] MEDS: Magnesium Chloride 64 MG Tab.ER PO SCH (07:32)
[2017-09-30] MEDS: Loratadine 10 MG Tab PO SCH (07:32)
[2017-09-30] MEDS: Cefdinir 300 MG Cap PO SCH (07:32)
[2017-09-30] MEDS: Multivitamin, Stress Formula with Zinc Tab PO SCH (07:32)
[2017-09-30] MEDS: Famotidine 20 MG Tab PO SCH (07:32)
[2017-09-30] MEDS: Aspirin 81 MG Tab.EC PO SCH (07:32)
[2017-09-30] MEDS: Fish Oil/Omega-3 Fatty Acids 1 Gm Cap PO SCH (07:33)
[2017-09-30] MEDS: levETIRAcetam 500 MG Tab PO SCH (07:33)
[2017-09-30] MEDS: Ferrous Sulfate 325 MG Tab PO SCH (07:33)
[2017-09-30] MEDS: Finasteride 5 MG Tab PO SCH (07:33)
[2017-09-30] MEDS: amLODIPine 10 MG Tab PO SCH (07:33)
[2017-09-30] MEDS: Tamsulosin 0.4 MG Cap.ER PO SCH (07:33)
[2017-09-30] MEDS: Citalopram 20 MG Tab PO SCH (07:33)
[2017-09-30] MEDS: SitaGLIPtin 25 MG Tab PO SCH (07:33)
[2017-09-30] MEDS: Docusate Sodium 100 MG Cap PO SCH (07:33)
[2017-09-30] MEDS: Acetaminophen 325 MG Tab PO SCH (07:34)
[2017-09-30] MEDS: Formoterol/Mometasone 200-5 MCG 8.8 GM Inhaler IH SCH (07:34)
--- NOTE | 2017-09-30 08:12 | PCM.DCSUM1 ---
Discharge Summary - Hospital Course Brief History: Mr. Squires is an 82 yo male admitted with sepsis secondary to UTI after he presented to the ER with lethargy. - Discharge Data Discharge Date: 09/30/17 Discharge Disposition: DC/Tfer to SNF 03 Condition: Good - Discharge Diagnosis/Problem(s) (1) Sepsis SNOMED Code(s): 52685740 ICD Code: A41.9 - SEPSIS, UNSPECIFIED ORGANISM Status: Acute Current Visit: Yes Problem Details: Initially met sepsis criteria with fever and leukocytosis. Resolved by hospital day #1. [place] to be secondary to UTI. No evidence by history or exam for other cause. Blood cultures negative. Urine culture grew proteus susceptible to cephalosporins. He had been treated empirically with ceftriaxone and then transitioned to cefdinir yesterday when susceptibilities were available. He also received IV fluids initially but has been maintaining on PO fluids only for the past 24 hours. Qualifiers: Sepsis type: sepsis due to unspecified organism Qualified Code(s): A41.9 - Sepsis, unspecified organism (2) UTI, Urinary tract infectious disease SNOMED Code(s): 79355546 ICD Code: N39.0 - URINARY TRACT INFECTION, SITE NOT SPECIFIED Status: Acute Current Visit: Yes Problem Details: U/A positive on admission leading to UTI diagnosis. Complicated given male gender and known urologic cancers. He was started on ceftriaxone empirically. Urine culture returned yesterday and he was transitioned to cefdinir based on susceptibilities. A catheter was placed on admission due to his mental status. This was removed yesterday and a voiding trial was successful. A random postvoid residual was only 70. (3) Acute kidney injury SNOMED Code(s): 64027977 ICD Code: N17.9 - ACUTE KIDNEY FAILURE, UNSPECIFIED Status: Acute Current Visit: Yes Problem Details: Creatinine up to 2.9 on admission, felt to be prerenal based on sepsis and dehydration. He was given gentle IV fluids and his creatinine progressively improved. It was back to his baseline of 1.7- 1.8 as of 2 days ago and has remained there with oral fluids only. (4) CKD (chronic kidney disease) SNOMED Code(s): 224458157 ICD Code: N18.9 - CHRONIC KIDNEY DISEASE, UNSPECIFIED Status: Chronic Current Visit: Yes Problem Details: See above. Creatinine is back to baseline. Qualifiers: Chronic kidney disease stage: unspecified stage Qualified Code(s): N18.9 - Chronic kidney disease, unspecified (5) Bladder cancer SNOMED Code(s): 826744732 ICD Code: C67.9 - MALIGNANT NEOPLASM OF BLADDER, UNSPECIFIED Status: Chronic Current Visit: Yes Problem Details: Has consult with oncology today for this and will be discharged in time to make it to that appointment. Qualifiers: Bladder location: unspecified site Qualified Code(s): C67.9 - Malignant neoplasm of bladder, unspecified (6) COPD (chronic obstructive pulmonary disease) SNOMED Code(s): 55772700 ICD Code: J44.9 - CHRONIC OBSTRUCTIVE PULMONARY DISEASE, UNSPECIFIED Status : Chronic Current Visit: No Problem Details: No acute symptoms. Lungs are clear. Home medications and oxygen continued as per usual schedule. Qualifiers: COPD type: unspecified COPD Qualified Code(s): J44.9 - Chronic obstructive pulmonary disease, unspecified (7) Diabetes mellitus SNOMED Code(s): 73901959 ICD Code: E11.9 - TYPE 2 DIABETES MELLITUS WITHOUT COMPLICATIONS Status: Chronic Current Visit: No Problem Details: Glucoses acceptable during this admission. His tresiba has been held since we do not have an accurate replacement for this. His glucoses have been good without this but likely has had some ongoing effect based on dosing prior to admission and severity of renal failure on admission. Will restart this on dismissal but lower dose to 30 units. (8) Hypertension SNOMED Code(s): 06119096 ICD Code: I10 - ESSENTIAL (PRIMARY) HYPERTENSION Status: Chronic Current Visit: No Problem Details: Blood pressures acceptable during this hospitalization. Home medications continued. Qualifiers: Hypertension type: essential hypertension Qualified Code(s): I10 - Essential (primary) hypertension - Patient Summary/Data Operative Procedure(s) Performed: none Complications: none Consults: none Labs Pending at D/C: none Recommended Follow-up Testing/Procedures: none Planned Operative Procedure(s) after DC: none Hospital Course: See details under problems above. Patient was treated with IV antibiotics and IV fluids. He progressively improved. Based on clinical improvement and susceptibility availability yesterday, he was transitioned to oral antibiotics and oral fluids. He will be discharged back to the snf in stable condition to attend his outpatient appointment with oncology today. - Patient Instructions Diet: Usual Diet as Tolerated - Discharge Plan Prescriptions/Med Rec: Cefdinir [IJD: Cefdinir] 300 mg PO BID #8 capsule Home Medications: Home Meds Citalopram [Citalopram HBr] 20 mg PO DAILY 12/29/13 [History] Lovastatin 20 mg PO DAILY 12/29/13 [History] amLODIPine [Norvasc] 10 mg PO DAILY 12/29/13 [History] Aspirin [Halfprin] 81 mg PO DAILY 01/04/14 [History] Fluticasone/Salmeterol [Advair 250-50] 1 puff INH BID 01/04/14 [History] Acetaminophen 650 mg PO BID 05/06/14 [History] Lactobacillus Acidophilus [Probiotic] 1 each PO BID 05/06/14 [History] Pregabalin [Lyrica] 75 mg PO BID 05/06/14 [History] Polyethylene Glycol 3350 [Miralax] 17 gm PO DAILY 07/29/15 [History] Fish Oil/[place]-3 Fatty Acids [Fish Oil 1,000 MG] 1 gram PO DAILY 08/01/15 [ History] Ferrous Sulfate 325 mg PO BIDMEALS #60 tablet 08/02/15 [Rx] Allopurinol [Zyloprim] 200 mg PO DAILY 02/17/17 [History] Alpha Lipoic Acid 300 mg PO TID 02/17/17 [History] Finasteride 5 mg PO DAILY 02/17/17 [History] Multivitamin [Multi-Vitamin Daily] 1 each PO DAILY 02/17/17 [History] Ranitidine HCl 150 mg PO DAILY 02/17/17 [History] Tamsulosin [Flomax] 0.4 mg PO DAILY 02/17/17 [History] levETIRAcetam [Keppra] 750 mg PO BID 02/17/17 [History] Docusate Sodium [Colace] 100 mg PO DAILY 09/27/17 [History] Levothyroxine Sodium [Unithroid] 100 mcg PO DAILY 09/27/17 [History] Loratadine 10 mg PO DAILY 09/27/17 [History] Magnesium Chloride [Mag-64] 128 mg PO BID 09/27/17 [History] Psyllium Husk (With Sugar) [Metamucil Powder] 1 tsp PO DAILY 09/27/17 [History] SitaGLIPtin [Januvia] 50 mg PO DAILY 09/27/17 [History] Cefdinir [IJD: Cefdinir] 300 mg PO BID #8 capsule 09/30/17 [Rx] Tresiba Flextouch Pen 200u/Ml 30 units SUBCUT DAILY #0 09/30/17 [Rx] Forms: ED Department Discharge Referrals: PCP,Unobtain [Primary Care Provider] - - Discharge Summary/Plan Comment DC Time >30 min.: No - General Info Date of Service: 09/30/17 Subjective Update: Still feels well this morning. No symptoms. Is ready for dismissal. - Review of Systems General: Reports: No Symptoms HEENT: Reports: No Symptoms Pulmonary: Reports: No Symptoms Cardiovascular: Reports: No Symptoms Gastrointestinal: Reports: No Symptoms Genitourinary: Reports: No Symptoms Musculoskeletal: Reports: No Symptoms Skin: Reports: No Symptoms Neurological: Reports: No Symptoms - Patient Data Vitals - Most Recent: Last Vital Signs Temp 36.9 C 09/30/17 05:55 Pulse 63 09/30/17 05:55 Resp 19 09/30/17 05:55 BP 136/84 09/30/17 05:55 Pulse Ox 93 L 09/30/17 07:44 Weight - Most Recent: 97.522 kg I&O - Last 24 hours: Intake & Output 09/29/17 09/30/17 09/30/17 22:59 06:59 14:59 Intake Total 900 860 Output Total 200 1250 Balance 700 -390 Lab Results - Last 24 hrs: Laboratory Results - last 24 hr 09/29/17 09/29/17 09/29/17 Range/Units 11:04 13:10 17:10 WBC (4.0-10.0) x10^3/uL RBC (4.5-6.0) x10^6/uL Hgb (14.0-18.0) g/dL Hct (40.0-52.0) % MCV (78.0-93.0) fL MCH (26.0-32.0) pg MCHC (32.0-36.0) g/dL RDW Coeff of Ayaz (10.0-15.0) % Plt Count (130-400) x10^3/uL Neut % (Auto) (50.0-80.0) % Lymph % (Auto) (25.0-50.0) % [place] % (Auto) (2.0-11.0) % Eos % (Auto) (0.0-4.0) % Baso % (Auto) (0.2-1.2) % Sodium (136-145) mmol/L Potassium (3.5-5.1) mmol/L Chloride (98-107) mmol/L Carbon Dioxide (21-32) mmol/L BUN (7-18) mg/dL Creatinine (0.70-1.30) mg/dL Est Cr Clr Drug Dosing mL/min Estimated GFR (MDRD) Glucose (74-106) mg/dL POC Glucose 82 152 H 100 (74-106) mg/dL Calcium (8.5-10.1) mg/dL C-Reactive Protein (<=0.9) mg/dL 09/29/17 09/30/17 09/30/17 Range/Units 19:10 06:17 07:00 WBC 7.7 (4.0-10.0) x10^3/uL RBC 3.58 L (4.5-6.0) x10^6/uL Hgb 10.6 L (14.0-18.0) g/dL Hct 32.8 L (40.0-52.0) % MCV 91.6 (78.0-93.0) fL MCH 29.6 (26.0-32.0) pg MCHC 32.3 (32.0-36.0) g/dL RDW Coeff of Ayaz 14.9 (10.0-15.0) % Plt Count 142 (130-400) x10^3/uL Neut % (Auto) 75.1 (50.0-80.0) % Lymph % (Auto) 9.8 L (25.0-50.0) % [place] % (Auto) 9.9 (2.0-11.0) % Eos % (Auto) 4.9 H (0.0-4.0) % Baso % (Auto) 0.3 (0.2-1.2) % Sodium (136-145) mmol/L Potassium (3.5-5.1) mmol/L Chloride (98-107) mmol/L Carbon Dioxide (21-32) mmol/L BUN (7-18) mg/dL Creatinine (0.70-1.30) mg/dL Est Cr Clr Drug Dosing mL/min Estimated GFR (MDRD) Glucose (74-106) mg/dL POC Glucose 171 H 99 (74-106) mg/dL Calcium (8.5-10.1) mg/dL C-Reactive Protein (<=0.9) mg/dL 09/30/17 Range/Units 07:00 WBC (4.0-10.0) x10^3/uL RBC (4.5-6.0) x10^6/uL Hgb (14.0-18.0) g/dL Hct (40.0-52.0) % MCV (78.0-93.0) fL MCH (26.0-32.0) pg MCHC (32.0-36.0) g/dL RDW Coeff of Ayaz (10.0-15.0) % Plt Count (130-400) x10^3/uL Neut % (Auto) (50.0-80.0) % Lymph % (Auto) (25.0-50.0) % [place] % (Auto) (2.0-11.0) % Eos % (Auto) (0.0-4.0) % Baso % (Auto) (0.2-1.2) % Sodium 144 (136-145) mmol/L Potassium 4.7 (3.5-5.1) mmol/L Chloride 111 H (98-107) mmol/L Carbon Dioxide 23 (21-32) mmol/L BUN 31 H (7-18) mg/dL Creatinine 1.7 H (0.70-1.30) mg/dL Est Cr Clr Drug Dosing 32.40 mL/min Estimated GFR (MDRD) 39 Glucose 103 (74-106) mg/dL POC Glucose (74-106) mg/dL Calcium 8.4 L (8.5-10.1) mg/dL C-Reactive Protein 14.3 H (<=0.9) mg/dL Med Orders - Current: Current Medications Acetaminophen (Tylenol) 650 mg PO BID [facility] Last Admin: 09/30/17 07:34 Dose: 650 mg Amlodipine Besylate (Norvasc) 10 mg PO DAILY [facility] Last Admin: 09/30/17 07:33 Dose: 10 mg Aspirin (Halfprin) 81 mg PO DAILY [facility] Last Admin: 09/30/17 07:32 Dose: 81 mg Cefdinir (Omnicef) 300 mg PO BID [facility] Last Admin: 09/30/17 07:32 Dose: 300 mg Citalopram Hydrobromide (Celexa) 20 mg PO DAILY [facility] Last Admin: 09/30/17 07:33 Dose: 20 mg Docusate Sodium (Colace) 100 mg PO DAILY [facility] Last Admin: 09/30/17 07:33 Dose: 100 mg Famotidine (Pepcid) 20 mg PO DAILY [facility] Last Admin: 09/30/17 07:32 Dose: 20 mg Ferrous Sulfate (Ferrous Sulfate) 325 mg PO BIDMEALS [facility] Last Admin: 09/30/17 07:33 Dose: 325 mg Finasteride (Proscar) 5 mg PO DAILY [facility] Last Admin: 09/30/17 07:33 Dose: 5 mg Fish Oil (Fish Oil) 1 gm PO DAILY [facility] Last Admin: 09/30/17 07:33 Dose: 1 gm Sodium Chloride (Normal Saline) 1,000 mls @ 100 mls/hr IV ASDIRECTED [facility] Last Admin: 09/28/17 23:21 Dose: 100 mls/hr Levetiracetam (Keppra) 750 mg PO BID [facility] Last Admin: 09/30/17 07:33 Dose: 750 mg Levothyroxine Sodium (Synthroid) 100 mcg PO ACBREAKFAST [facility] Last Admin: 09/30/17 06:16 Dose: 100 mcg Loratadine (Claritin) 10 mg PO DAILY [facility] Last Admin: 09/30/17 07:32 Dose: 10 mg Magnesium Chloride (Mag-64) 128 mg PO BID [facility] Last Admin: 09/30/17 07:32 Dose: 128 mg Mometasone Furoate/Formoterol Fumar (Dulera 200-5 Mcg) 2 puff IH BID [facility] Last Admin: 09/30/17 07:34 Dose: 2 puff Non-Formulary Medication (Tresiba Flextouch Pen 200u/Ml) 70 units SUBCUT DAILY [facility] Last Admin: 09/27/17 08:55 Dose: Not Given Ondansetron HCl (Zofran) 4 mg IVPUSH Q8H PRN PRN Reason: Nausea Last Admin: 09/29/17 07:50 Dose: 4 mg Pregabalin (Lyrica) 75 mg PO BID [facility] Last Admin: 09/30/17 07:32 Dose: 75 mg Simvastatin (Zocor) 10 mg PO BEDTIME [facility] Last Admin: 09/29/17 19:05 Dose: 10 mg Sitagliptin Phosphate (Januvia) 50 mg PO DAILY [facility] Last Admin: 09/30/17 07:33 Dose: 50 mg Sodium Chloride (Saline Flush) 10 ml FLUSH ASDIRECTED PRN PRN Reason: Keep Vein Open Tamsulosin HCl (Flomax) 0.4 mg PO DAILY [facility] Last Admin: 09/30/17 07:33 Dose: 0.4 mg Vitamin B Complex/Vit C/Vit E/Zinc (Stress Formula With Zinc) 1 tab PO DAILY [facility] Last Admin: 09/30/17 07:32 Dose: 1 tab Discontinued Medications Ceftriaxone Sodium (Rocephin) 1 gm IVPUSH ONETIME ONE Stop: 09/27/17 03:47 Last Admin: 09/27/17 04:11 Dose: 1 gm Ceftriaxone Sodium (Rocephin) 1 gm IVPUSH DAILY [facility] Ceftriaxone Sodium (Rocephin) 1 gm IVPUSH DAILY [facility] Last Admin: 09/29/17 07:50 Dose: 1 gm Hydromorphone HCl (Dilaudid) 1 mg IVPUSH Q3H PRN PRN Reason: Pain Sodium Chloride (Normal Saline) 1,000 mls @ 1,000 mls/hr IV .BOLUS ONE Stop: 09/27/17 03:12 Last Admin: 09/27/17 03:00 Dose: 1,000 mls/hr Sodium Chloride (Normal Saline) 1,000 mls @ 250 mls/hr IV .BOLUS ONE Stop: 09/27/17 08:05 Last Admin: 09/27/17 04:47 Dose: 250 mls/hr Insulin Aspart (Novolog) 0 unit SUBCUT TIDMEALS [facility] Last Admin: 09/27/17 08:17 Dose: Not Given Insulin Aspart (Novolog) 0 unit SUBCUT QIDACANDBED [facility] Last Admin: 09/29/17 11:48 Dose: Not Given Levothyroxine Sodium (Synthroid) 100 mcg PO DAILY [facility] Last Admin: 09/27/17 08:15 Dose: 100 mcg Pregabalin (Lyrica) 75 mg PO BID [facility] Last Admin: 09/27/17 08:55 Dose: Not Given - Exam General: Reports: Alert, Cooperative, No Acute Distress Neck: Reports: Supple, Trachea Midline, No Thyromegaly. Denies: Lymphadenopathy Lungs: Reports: Clear to Auscultation, Normal Respiratory Effort Cardiovascular: Reports: Regular Rate, Regular Rhythm, No Murmurs GI/Abdominal Exam: Normal Bowel Sounds, Soft, Non-Tender, No Organomegaly, No Distention, No Mass Extremities: Non-Tender, No Pedal Edema, Normal Capillary Refill Skin: Reports: Warm, Dry, Intact *Q Meaningful Use (DIS) - VTE *Q VTE Criteria *Q: - Stroke *Q Stroke Criteria *Q: - AMI *Q AMI Criteria *Q:
== END 2017-09-30 08:28 | DRG 872 ==
LOC: VM.ED 01:48 → VM.MS 04:03
PROVIDERS: ADMIT Family Medicine; ATTEND Family Medicine
DX: A41.9 Sepsis, unspecified organism (principal); N39.0 Urinary tract infection, site not specified; N17.9 Acute kidney failure, unspecified; B96.4 Proteus (mirabilis) (morganii) as the cause of diseases classified elsewhere; I12.9 Hypertensive chronic kidney disease with stage 1 through stage 4 chronic kidney disease, or unspecified chronic kidney disease; E11.22 Type 2 diabetes mellitus with diabetic chronic kidney disease; G40.909 Epilepsy, unspecified, not intractable, without status epilepticus; J44.9 Chronic obstructive pulmonary disease, unspecified; E03.9 Hypothyroidism, unspecified; Z66 Do not resuscitate; Z51.5 Encounter for palliative care; Z79.4 Long term (current) use of insulin; Z99.81 Dependence on supplemental oxygen; Z87.891 Personal history of nicotine dependence; N18.9 Chronic kidney disease, unspecified; C67.9 Malignant neoplasm of bladder, unspecified; R53.1 Weakness; R50.9 Fever, unspecified; R41.0 Disorientation, unspecified; F03.90 Unspecified dementia, unspecified severity, without behavioral disturbance, psychotic disturbance, mood disturbance, and anxiety; R07.9 Chest pain, unspecified; F32.9 Major depressive disorder, single episode, unspecified; G47.30 Sleep apnea, unspecified; E78.00 Pure hypercholesterolemia, unspecified; N40.0 Benign prostatic hyperplasia without lower urinary tract symptoms; Z85.46 Personal history of malignant neoplasm of prostate; Z85.038 Personal history of other malignant neoplasm of large intestine; M19.90 Unspecified osteoarthritis, unspecified site; M10.9 Gout, unspecified; Z79.82 Long term (current) use of aspirin; Z88.8 Allergy status to other drugs, medicaments and biological substances
CPT/HCPCS: 36415; 51702; 71045; 80053; 81001; 83605; 85025; 85610; 86140; 87040 ×2; 87086; 87186; 87804 ×2; 99285; J7030; 80048; 82962; 84484; 87088; 93005; 94760; 96374; 99284-GF; A9270-GY; J0696; J1815-GY; J2405